=== PATIENT | female | born 1995 | race Caucasian/White ===

== ENCOUNTER 2016-11-23 14:12 | Emergency (ER) | payer MEDICAID ==
[2015-03-27 08:21] VITALS: BMI 38.7
[~2016-11-23 14:12] MED LIST: ADVIL200 MG PO; ATIVAN1 MG PO; BACTRIM DS TABL1 TAB PO; BENADRYL25 MG PO; CELEXA40 MG PO; COUMADIN4 MG PO; COUMADIN7.5 MG PO; DEPAKOTE500 MG PO; DYAZIDE 37.5/251 CAP PO; HYDROCODONE-APA1 TAB PO; LOVENOX60 MG/0.6 SC; PRENATAL COMPLE1 TAB PO; PRILOSEC20 MG PO; RISPERDAL1 MG PO
[2016-11-23 14:55] LABS: BASOPHILS 0.2 % (0.0-2.0); EOSINOPHILS 1.7 % (0-7); HEMATOCRIT 41.2 % (36.0-48.0); HEMOGLOBIN 13.6 g/dL (12-16); IMMATURE GRANULOCYTES 0.1 % (0-5); LYMPHOCYTES 25.1 % (15-50); MCH 29.8 pg (26.0-34.0); MCV 90.4 fL (80.0-100.0); MEAN PLATELET VOLUME 10.1 fL (7.4-10.4); MONOCYTES 7.1 % (2-11); NEUTROPHILS 65.8 % (40-80); RBC 4.56 10x6/uL (4.00-5.40); RDW 13.2 % (11.5-14.5)
[2016-11-23 15:02] LABS: PLATELET COUNT 317 10x3/uL (130-400)
[2016-11-23 15:18] LABS: HCG SERUM POSITIVE (NEGATIVE)
[2016-11-23 15:32] LABS: APTT 33.8 SECONDS (22.8-39.4); INR 1.52 (0.85-1.17); PROTIME 18.2 SECONDS (11.6-15.0)
[2016-11-23 15:36] LABS: APPEARANCE CLEAR (CLEAR); BILIRUBIN NEGATIVE (NEGATIVE); COLOR YELLOW (YELLOW); GLUCOSE NEGATIVE (NEGATIVE); KETONE NEGATIVE (NEGATIVE); LEUKOCYTE ESTERASE TRACE (NEGATIVE); NITRITE NEGATIVE (NEGATIVE); PROTEIN NEGATIVE (NEGATIVE); UROBILINOGEN NORMAL (NORMAL)
[2016-11-23 15:37] LABS: EPITHELIAL CELLS OCC /hpf (0-5); RED CELLS - URINE >50 /hpf (0-5); WHITE CELLS - URINE 0-5 /hpf (0-5)
[2016-11-23 15:38] LABS: BACTERIA FEW /hpf (NONE SEEN)
== END 2016-11-23 17:55 | disposition home or self-care (01) ==
LOC: D.ER 14:12
PROVIDERS: Emergency Medicine; Nurse Practitioner Acute Care
DX: O20.0 Threatened abortion (principal); Z3A.00 Weeks of gestation of pregnancy not specified; F31.9 Bipolar disorder, unspecified; G40.909 Epilepsy, unspecified, not intractable, without status epilepticus

== ENCOUNTER 2016-11-23 22:10 | Emergency (ER) | payer MEDICAID ==
[2015-03-27 08:21] VITALS: BMI 38.7
[2016-11-23 23:33] LABS: BASOPHILS 0.2 % (0.0-2.0); HEMATOCRIT 39.3 % (36.0-48.0); HEMOGLOBIN 13.2 g/dL (12-16); IMMATURE GRANULOCYTES 0.2 % (0-5); LYMPHOCYTES 27.1 % (15-50); MCH 30.1 pg (26.0-34.0); MCHC 33.6 g/dL (31.0-37.0); MCV 89.7 fL (80.0-100.0); MEAN PLATELET VOLUME 10.1 fL (7.4-10.4); MONOCYTES 8.3 % (2-11); NEUTROPHILS 62.2 % (40-80); PLATELET COUNT 325 10x3/uL (130-400); RBC 4.38 10x6/uL (4.00-5.40); RDW 13.2 % (11.5-14.5); WBC 9.8 10x3/uL (4.8-10.8)
[2016-11-23 23:41] LABS: INR 1.52 (0.85-1.17); PROTIME 18.3 SECONDS (11.6-15.0)
[2016-11-23 23:44] LABS: ALBUMIN 3.6 g/dL (3.4-5.0); ALKALINE PHOSPHATASE 57 U/L (46-116); ALT (SGPT) 49 U/L (10-68); CALC OSMOLALITY 276 mosm/kg (275-300); CALCIUM 9.3 mg/dL (8.5-10.1); CARBON DIOXIDE 28.5 mmol/L (21.0-32.0); CHLORIDE - SERUM 102 mmol/L (98-107); CREATININE - SERUM 0.8 mg/dL (0.6-1.3); GLUCOSE 104 mg/dL (74-106); POTASSIUM - SERUM 3.4 mmol/L (3.5-5.1); PROTEIN - SERUM 7.3 g/dL (6.4-8.2); SODIUM 139 mmol/L (136-145); UREA NITROGEN 10 mg/dL (7-18); eGFR NON AFRICAN AMERICAN > 90 mL/min (90-120)
[2016-11-24 00:03] LABS: HCG - QUANTITATIVE (MATERNAL) 335 mIU/mL
== END 2016-11-24 00:52 | disposition home or self-care (01) ==
LOC: D.ER 22:10
PROVIDERS: Family Medicine
DX: N93.9 Abnormal uterine and vaginal bleeding, unspecified (principal); D68.9 Coagulation defect, unspecified; Z79.01 Long term (current) use of anticoagulants; F31.9 Bipolar disorder, unspecified; G40.909 Epilepsy, unspecified, not intractable, without status epilepticus

== ENCOUNTER 2017-06-06 01:45 | Emergency (ER) | payer MEDICAID ==
[2015-03-27 08:21] VITALS: BMI 38.7
[2017-06-06 02:17] LABS: APPEARANCE CLEAR (CLEAR); BILIRUBIN NEGATIVE (NEGATIVE); COLOR YELLOW (YELLOW); GLUCOSE NEGATIVE (NEGATIVE); KETONE NEGATIVE (NEGATIVE); LEUKOCYTE ESTERASE NEGATIVE (NEGATIVE); NITRITE NEGATIVE (NEGATIVE); PROTEIN NEGATIVE (NEGATIVE); SPECIFIC GRAVITY 1.005 (1.005-1.020); UROBILINOGEN NORMAL (NORMAL)
[2017-06-06 02:28] LABS: BASOPHILS 0.1 % (0-2); EOSINOPHILS 0.3 % (0-7); HEMATOCRIT 38.7 % (36.0-48.0); HEMOGLOBIN 13.6 g/dL (12-16); IMMATURE GRANULOCYTES 0.3 % (0-5); LYMPHOCYTES 23.6 % (15-50); MCH 31.9 pg (26.0-34.0); MCHC 35.1 g/dL (31.0-37.0); MCV 90.6 fL (80.0-100.0); MEAN PLATELET VOLUME 10.2 fL (7.4-10.4); MONOCYTES 6.2 % (2-11); NEUTROPHILS 69.5 % (40-80); PLATELET COUNT 314 10x3/uL (130-400); RBC 4.27 10x6/uL (4.00-5.40); RDW 12.7 % (11.5-14.5); WBC 11.1 10x3/uL (4.8-10.8)
[2017-06-06 02:37] LABS: HCG SERUM POSITIVE (NEGATIVE)
[2017-06-06 02:42] LABS: ALBUMIN 3.6 g/dL (3.4-5.0); ALKALINE PHOSPHATASE 57 U/L (46-116); ALT (SGPT) 23 U/L (10-68); BILIRUBIN - TOTAL 0.38 mg/dL (0.2-1.3); CALC OSMOLALITY 273 mosm/kg (275-300); CALCIUM 9.5 mg/dL (8.5-10.1); CHLORIDE - SERUM 102 mmol/L (98-107); CREATININE - SERUM 0.6 mg/dL (0.6-1.3); GLUCOSE 98 mg/dL (74-106); POTASSIUM - SERUM 3.5 mmol/L (3.5-5.1); PROTEIN - SERUM 7.8 g/dL (6.4-8.2); SODIUM 138 mmol/L (136-145); UREA NITROGEN 8 mg/dL (7-18); eGFR NON AFRICAN AMERICAN > 90 mL/min (90-120)
[2017-06-06 03:03] LABS: HCG - QUANTITATIVE (MATERNAL) 97596 mIU/mL
== END 2017-06-06 04:10 | disposition home or self-care (01) ==
LOC: D.ER 01:45
PROVIDERS: Family Medicine
DX: O26.891 Other specified pregnancy related conditions, first trimester (principal); Z3A.08 8 weeks gestation of pregnancy; R10.9 Unspecified abdominal pain; F17.200 Nicotine dependence, unspecified, uncomplicated

== ENCOUNTER 2019-07-16 10:58 | Emergency (ER) | payer MEDICAID ==
[~2019-07-16] VITALS: Ht 167.6 cm; Wt 109.1 kg
[2019-07-16 11:04] VITALS: Ht 167.6 cm; Wt 109.1 kg
[2019-07-16] MEDS ORDERED: HTN MED? (11:07)
[2019-07-16 11:23] LABS: BASOPHILS 0.3 % (0-2); EOSINOPHILS 0.8 % (0-7); HEMATOCRIT 38.1 % (36.0-48.0); HEMOGLOBIN 13.1 g/dL (12-16); IMMATURE GRANULOCYTES 0.1 % (0-5); LYMPHOCYTES 26.6 % (15-50); MCH 29.5 pg (26.0-34.0); MCHC 34.4 g/dL (31.0-37.0); MCV 85.8 fL (80.0-100.0); MONOCYTES 8.3 % (2-11); NEUTROPHILS 63.9 % (40-80); PLATELET COUNT 327 10x3/uL (130-400); RBC 4.44 10x6/uL (4.00-5.40); RDW 12.9 % (11.5-14.5); WBC 7.3 10x3/uL (4.8-10.8)
[2019-07-16 11:37] LABS: ALKALINE PHOSPHATASE 72 U/L (46-116); ALT (SGPT) 26 U/L (10-68); AMYLASE - SERUM 60 U/L (25-115); BILIRUBIN - TOTAL 0.44 mg/dL (0.2-1.3); CALC OSMOLALITY 276 mosm/kg (275-300); CALCIUM 9.5 mg/dL (8.5-10.1); CARBON DIOXIDE 29.2 mmol/L (21.0-32.0); CHLORIDE - SERUM 103 mmol/L (98-107); CREATININE - SERUM 0.7 mg/dL (0.6-1.3); GLUCOSE 98 mg/dL (74-106); LIPASE 90 U/L (73-393); POTASSIUM - SERUM 4.1 mmol/L (3.5-5.1); PROTEIN - SERUM 7.7 g/dL (6.4-8.2); SODIUM 139 mmol/L (136-145); UREA NITROGEN 11 mg/dL (7-18); eGFR NON AFRICAN AMERICAN > 90 mL/min (90-120)
[2019-07-16 11:41] LABS: HCG SERUM NEGATIVE (NEGATIVE)
[2019-07-16 12:00] LABS: APPEARANCE CLEAR (CLEAR); BILIRUBIN NEGATIVE (NEGATIVE); COLOR STRAW (YELLOW); GLUCOSE NEGATIVE (NEGATIVE); KETONE NEGATIVE (NEGATIVE); NITRITE NEGATIVE (NEGATIVE); PROTEIN NEGATIVE (NEGATIVE); SPECIFIC GRAVITY 1.005 (1.005-1.020); UROBILINOGEN NORMAL (NORMAL)
[2019-07-16] MEDS ORDERED: ZOFRAN8 MG PO (13:32)
[2019-07-16] MEDS ORDERED: PROTONIX40 MG PO (13:32)
[2019-07-16 15:49] VITALS: BP 125/65
== END 2019-07-16 15:50 | disposition home or self-care (01) ==
LOC: D.ER 10:58
PROVIDERS: Family Medicine
DX: R10.9 Unspecified abdominal pain (principal); R11.10 Vomiting, unspecified